=== PATIENT | male | born 1975 | race Caucasian/White ===

== ENCOUNTER 2020-10-17 00:51 | Observation (INO) | payer OTHER ==
[~2020-10-17] VITALS: Ht 198.1 cm; Wt 104.3 kg
[2020-10-17] MEDS ORDERED: OMEPRAZOLE40 MG PO (02:51)
[2020-10-17] MEDS ORDERED: SILDENAFIL20 MG PO (02:51)
[2020-10-17] MEDS ORDERED: CETIRIZINE HCL10 MG PO (02:51)
[2020-10-17 03:31] LABS: HEMOGLOBIN 14.6 gm/dl (14.0-17.5); RED BLOOD COUNT 4.48 M/UL (4.20-5.50); WHITE BLOOD COUNT 12.1 K/UL (4.5-11.0)
[2020-10-17 04:02] LABS: BUN/CREATININE RATIO 13 (0-10)
--- NOTE | 2020-10-17 19:19 | NUR ---
PT IS STILL UNABLE TO FEEL FEET AND WIGGLE TOES. MYSELF AND MARGARET CALLED THE MD TO EXPRESS CONCERN ABOUT HIS LACK OF FEELING IN HIS FOOT. THE MD TOLD US TO CALL THE ANESTHESIOLOGIST WHO PERFORMED THE NERVE BLOCK. WITH NO SUCCESS AT CONTACTIG THE ANESTHESIOLOGIST HOUSE WAS NOTIFIED.
--- NOTE | 2020-10-17 19:32 | NUR ---
CALLED AND SPOKE WITH DR MENESES REGARDING CONCERN THAT PATIENT IS STILL UNABLE TO HAVE ANY SENSATION OR MOVEMENT TO DISTAL RIGHT LOWER EXTREMITIY POST SURGCIAL REPAIR. DR MENESES SUGGEST CALLING ANESTHESIA REGARDING THIS CONCERN RATHER THAN ORTHO BEING THAT IT IS A ANESTHESIA CONCERN. CALLED DR SHEIKH AT THIS TIME, ANESTHESIA EVAPORATOR SUPERVISOR , AND HE VOICES THAT HE WILL REPORT TO PATIENTS BEDSIDE, BUT THAT IT IS NOT UNUSAL TO HAVE NERVE BLOCKS LAST UP TO 24 HOURS.
[2020-10-18 03:32] LABS: HEMOGLOBIN 12.7 gm/dl (14.0-17.5)
[2020-10-18 03:38] LABS: RED BLOOD COUNT 3.92 M/UL (4.20-5.50); WHITE BLOOD COUNT 17.5 K/UL (4.5-11.0)
[2020-10-18 03:46] LABS: BUN/CREATININE RATIO 21 (0-10)
[2020-10-18] MEDS ORDERED: ENOXAPARIN40 MG/0.4 SC (10:40)
== END 2020-10-18 14:11 | disposition home or self-care (01) ==
LOC: M/S 00:51
PROVIDERS: Internal Medicine; Orthopaedic Surgery; ADMIT Internal Medicine
PROC: 0QSG06Z Reposition Right Tibia with Intramedullary Internal Fixation Device, Open Approach (ICD-10-PCS; 2020-10-17)
PROC: 3E0T3GC Introduction of Other Therapeutic Substance into Peripheral Nerves and Plexi, Percutaneous Approach (ICD-10-PCS; 2020-10-17)
PROC: 0QSJ06Z Reposition Right Fibula with Intramedullary Internal Fixation Device, Open Approach (ICD-10-PCS; principal; 2020-10-17 11:00)
DX: S82.831A Other fracture of upper and lower end of right fibula, initial encounter for closed fracture (principal); S82.391A Other fracture of lower end of right tibia, initial encounter for closed fracture; S82.891A Other fracture of right lower leg, initial encounter for closed fracture; G89.18 Other acute postprocedural pain; K21.9 Gastro-esophageal reflux disease without esophagitis; Z23 Encounter for immunization; Z87.891 Personal history of nicotine dependence; Z79.899 Other long term (current) drug therapy; Z88.8 Allergy status to other drugs, medicaments and biological substances; Z88.0 Allergy status to penicillin; W19.XXXA Unspecified fall, initial encounter; Y93.39 Activity, other involving climbing, rappelling and jumping off
CPT/HCPCS: 36415; 73590; 73600; 76000; 80048; 80053; 83735; 85025; 97116; 97161; 97165; 97530; C1713; G0378; G0379; J0171; J1100; J1650; J1885; J2001; J2250; J2270; J2405; J2704; J2795; J3010; J7030; J7120